=== PATIENT | male | born 1990 | race Caucasian/White ===

== ENCOUNTER 2021-11-30 15:04 | Emergency (ER) | payer OTHER, SELFPAY ==
[2021-11-30 15:06] VITALS: BP 168/94; PULSE 92; RESP 18; TEMP 36.4; O2SAT 91; BMI 29.6
[2021-11-30 15:22] VITALS: O2SAT 100
--- NOTE | 2021-11-30 15:26 | EKG12_ITS ---
Test Reason : sob Blood Pressure : / mmHG Vent. Rate : 079 BPM Atrial Rate : 079 BPM P-R Int : 146 ms QRS Dur : 088 ms QT Int : 366 ms P-R-T Axes : 045 008 031 degrees QTc Int : 419 ms Normal sinus rhythm Normal ECG Confirmed by TORREY MCCALL, BRENDA ([id number]), editorial manager JOHNNY TOLEDO ([id number]) on 12/01/2021 11:08:23 AM Referred By: Anthony Confirmed By:BRENDA HIRSCH MD
--- NOTE | 2021-11-30 15:30 | EDS_ITS ---
HPI History of Present Illness Chief Complaint: Shortness of Breath Narrative Narrative: Patient presents with burning sensation in his chest and with respiration for the last 2 months. 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 He has noticed burning when breathing. While he has a face shield, he does not wear a respirator type mask. He was reading on the bottles that this could cause cancer. He presents because of the continued burning sensation. He does admit that he is a smoker, and he used to vape. He only smokes maybe 1 cigarette/week. He denies any nausea or vomiting. No other chest pain. No swelling or palpitations. PFSH PFSH Medical History no medical history Allergy/AdvReac Type Severity Reaction Status Date / Time Penicillins Allergy Anaphylaxis Verified 11/30/21 15:11 Family History no significant family his Surgical History no surgical history Social History Smoking Status: Never smoker ROS ROS ED ROS Narrative Constitutional: No fever, no chills. HEENT: No sore throat. No neck pain. No loss of vision. No rhinorrhea. Cardiovascular: No chest pain. No palpitations. No pedal edema. Respiratory: No cough, no shortness of breath. Burning sensation in chest with respirations. Abdominal: No abdominal pain. No nausea. No vomiting. Genitourinary: No dysuria. No hematuria. Musculoskeletal: No myalgias. No arthralgias. Neurologic: No headaches. No dizziness. No lightheadedness. Skin: No rash. No change in color. Psychiatric: No depression. No anxiety. EXAM Physical Exam Narrative Exam Narrative: Afebrile. Vital signs noted. HEENT: Normocephalic. Atraumatic. PERRL, EOMI. Neck soft and supple. No point tenderness or step off. Cardiovascular: Regular rate and rhythm. No murmurs, rubs, or gallops appreciated. Respiratory: No tachypnea. Lungs clear to auscultation bilaterally. Gastrointestinal: Abdomen soft, nontender, with normoactive bowel sounds. No rebound or guarding. Neurological: Awake. Alert. Nonfocal, nonlateralizing. Skin: No rash. Normal color. No pallor. Musculoskeletal: No pedal edema. Full range of motion extremities. Const Vital Signs: 11/30/21 15:06 11/30/21 15:22 Temperature 97.6 F L Temperature Source Temporal Pulse Rate 92 Respiratory Rate 18 Respiratory Effort Short of Breath Respiratory Depth Normal Respiratory Pattern Normal Blood Pressure 168/94 H Blood Pressure Mean 118 Pulse Ox 91 Oxygen Delivery Method Room Air Room Air MDM MDM MDM Narrative Medical decision making narrative: Although RN documented O2 sat is 91% on room air, during my examination he was 100% on room air while resting on the cot. It was noted that he had elevated blood pressure of 168/94 without diagnosis of hypertension. He was told that he may need to address this in the future with follow-up with a primary care provider. I will obtain an EKG and a chest x-ray in 2 views. EKG interpreted by myself demonstrates normal sinus rhythm at 79 bpm without ectopy or acute ST changes. No STEMI. Chest x-ray interpreted by myself shows no evidence of pneumonia or pneumonitis, or pneumothorax. At this point in time, I feel he can be discharged safely home with follow-up. He did have elevated blood pressure reading and was told to keep a log of his blood pressures and that he needs to have this addressed by her primary care physician. He will follow-up with the [facility] regarding his burning sensation in his chest that he feels may be related to his [employer] claim. I feel he can be discharged safely home with follow-up. Return instructions were reviewed. Disposition is discharged home in stable condition. Radiography Diagnostic Testing: Clinical Impression(s) from Imaging Studies Chest X-Ray 11/30/21 16:20 IMPRESSION: Normal x-ray examination of the chest. Electronically Signed: Toan Rankin MD at 16:33 EDT , Discharge Plan Triage Chief Complaint: Shortness of Breath ED Provider: Shawn Cruz Dx/Rx/DC Orders Clinical Impression: Burning chest pain, Dyspnea, Elevated BP without diagnosis of hypertension Instructions: ED Dyspnea, ED Hypertension, To Be Confirmed Primary Care Provider: Care Physician,No Primary Referrals: Addison Tamayo MD [STAFF PHYSICIAN] - As soon as possible NOT,DEFINED [NON-STAFF] - [facility] [NON-STAFF] - 3-5 Days if not improving Activity Restrictions/Additional Instructions: Your blood pressure reading was elevated today. Follow-up with your primary care physician as soon as possible regarding this. Keep a log of your blood pressures. Return with any headaches, chest pain, new or worsening symptoms. Disposition Disposition: Home, Self Care
--- NOTE | 2021-11-30 16:20 | RAD_ITS ---
STUDY: X-RAY CHEST REASON FOR EXAM: Male, 31 years old. Burning with respirations TECHNIQUE: PA and lateral views of the chest. COMPARISON: None. FINDINGS: The lungs are clear and expanded. There is no demonstrated pleural abnormality. Normal size heart. Normal mediastinum and isaiah. Normal visualized pulmonary arteries. Normal visualized aortic arch and descending thoracic aorta. Normal visualized thoracic spine. Normal visualized ribs, clavicles, and shoulders. There is no demonstrated abnormality of the visualized soft tissue structures of the upper abdomen. RAD/Chest PA and Lateral IMPRESSION: Normal x-ray examination of the chest. Electronically Signed: Toan Rankin MD at 16:33 EDT ,
== END 2021-11-30 16:52 | disposition home or self-care (01) ==
PROVIDERS: Emergency Provider Emergency Medicine; Visit Provider Emergency Medicine
DX: R07.9 Chest pain, unspecified (principal); R03.0 Elevated blood-pressure reading, without diagnosis of hypertension; R06.00 Dyspnea, unspecified; F17.210 Nicotine dependence, cigarettes, uncomplicated
CPT/HCPCS: 71046; 93005; 99282